=== PATIENT | male | born 1995 | race Caucasian/White ===

== ENCOUNTER 2017-04-14 07:05 | Emergency (ER) | payer MEDICAID ==
[2017-04-14 07:27] VITALS: BP 128/69
--- NOTE | 2017-04-14 07:42 | ED Physician Documentation ---
History of Present Illness - Stated complaint Stated Complaint: TOOTH PX - Chief complaint Chief Complaint: Heent - History obtained from History obtained from: Patient (Pt staes that he has been having off and on issues with his teeth and is here because his left upper teeth are hurting and the gum is swollen. He staes that this happened a couple days ago but resolved within 24 hours. it is now back.) - History of Present Illness Timing: Yesterday Review of Systems Constitutional: denies: Fever, Chills Ears: denies: Loss of hearing, Ear pain, Drainage/discharge, Foreign body Nose: denies: Rhinorrhea / runny nose, Congestion, Sinus pressure / pain Throat: reports: Dental pain / toothache, Oral lesions / sores. denies: Sore throat, Swollen tonsils, Swallowed foreign body Cardiac: denies: Chest pain / pressure Respiratory: denies: Dyspnea, Cough, Wheezing GI: denies: Abdominal Pain, Nausea, Vomiting, Constipation, Diarrhea Skin: denies: Rash, Laceration (s) Musculoskeletal: denies: Neck pain, Joint pain Neurologic: denies: Generalized weakness, Headache PD PAST MEDICAL HISTORY - Past Medical History Past Medical History: No - Past Surgical History Past Surgical History: No - Present Medications Home Medications: Ambulatory Orders Medication Instructions Recorded Confirmed Clindamycin HCl [Clindamycin 300MG 300 mg PO QID 7 Days #28 capsule 04/14/17 CAP] HYDROcod/ACETAM 5/325 [[place] 5/325] 1 tab PO Q6H PRN #6 tablet 04/14/17 - Allergies Allergies/Adverse Reactions: Allergies Allergy/AdvReac Type Severity Reaction Status Date / Time No Known Drug Allergies Allergy Verified 04/14/17 07:17 - Social History Does the pt smoke?: No Smoking Status: Never smoker Does the pt drink ETOH?: No Does the pt have substance abuse?: Yes - Immunizations Immunizations are current?: Yes Immunizations: TDAP current <10years - POLST Patient has POLST: No PD ED PE NORMAL - Vitals Vital signs reviewed: Yes - General General: Alert and oriented X 3, No acute distress, Well developed/nourished - HEENT HEENT: Atraumatic, Moist mucous membranes - Neck Neck: Supple, no meningeal sign, No adenopathy - Cardiac Cardiac: RRR - Respiratory Respiratory: No respiratory distress, Clear bilaterally - Derm Derm: Normal color, No rash - Neuro Neuro: Alert and oriented X 3 Eye Opening: Spontaneous Motor: Obeys Commands Verbal: Oriented GCS Score: 15 - Psych Psych: Normal mood, Normal affect PD ED PE EXPANDED - HEENT HEENT: Pharynx normal, Dental decay (Pt with diffuse poor dentition with missing and broken teeth and multiple caries. ), Dental TTP. No: Pharyngeal erythema, Swollen tonsils, Soft palate petecchiae, Dentition normal, Oral lesions / sores, Lip laceration, Tongue laceration, Buccal laceration Results - Vitals Vitals: Vital Signs - 24 hr 04/14/17 07:16 Temperature 35.8 C L Heart Rate 84 Respiratory 18 Rate Blood Pressure 128/69 O2 Saturation 100 Oxygen O2 Source Room air PD MEDICAL DECISION MAKING - ED course Complexity details: d/w patient ED course: Pt with diffuse poor dentition with multiple missing and broken teeth. He states that he has been to the dentist in the past for this and was told that he needed to take antibiotics before they could address any issues. He states that he took the ABX but before he could get back into see the dentist the symptoms returned. He has not identifiable abscess that can be drained in the ER. He was given contact numbers for a low cost dental clinic in the area. He stated that this was the clinic that he went to in the past. Informed him that the ABX today were just a temp measure and he needed to go see the dentist. He expressed understanding. Departure - Departure Disposition: 01 Home, Self Care Clinical Impression: Dental caries, Pain due to dental caries Condition: Good Instructions: ED Tooth Pain Follow-Up: dental,clinic [Other] Prescriptions: Clindamycin HCl [Clindamycin 300MG CAP] 300 mg PO QID 7 Days #28 capsule HYDROcod/ACETAM 5/325 [[place] 5/325] 1 tab PO Q6H PRN #6 tablet PRN Reason: Pain Comments: Follow up with the dental clinic at the number that you were provided.
== END 2017-04-14 07:52 | disposition home or self-care (01) ==
LOC: ED 07:05
DX: K02.9 Dental caries, unspecified (principal); K08.89 Other specified disorders of teeth and supporting structures
CPT/HCPCS: 99283

== ENCOUNTER 2017-07-07 05:39 | Emergency (ER) | payer MEDICAID ==
[2017-07-07 05:51] VITALS: BP 125/89
--- NOTE | 2017-07-07 05:58 | ED Physician Documentation ---
PD HPI HEENT - Stated complaint Stated Complaint: HEADACHE,VOMITING - Chief complaint Chief Complaint: Heent - History obtained from History obtained from: Patient - History of Present Illness Timing - onset: How many days ago (3) Timing - details: Gradual onset, Still present Location: Tooth, Mouth Associated symptoms: Facial swelling. 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 Patient has very poor dentition and has a follow up with a dentist in a couple of weeks but he needed to be on antibiotics before then. Patient came in today because he stated that his face was starting to swell. Review of Systems Constitutional: denies: Fever, Chills Eyes: denies: Loss of vision, Decreased vision, Photophobia, Irritation Ears: reports: Reviewed and negative Nose: denies: Congestion Throat: reports: Dental pain / toothache, Oral lesions / sores Cardiac: reports: Reviewed and negative Respiratory: reports: Reviewed and negative GI: reports: Nausea, Reviewed and negative : reports: Reviewed and negative Skin: reports: Reviewed and negative Musculoskeletal: reports: Reviewed and negative Neurologic: reports: Reviewed and negative Psychiatric: reports: Reviewed and negative Immunocompromised: denies: Immunocompromised PD PAST MEDICAL HISTORY - Past Medical History Past Medical History: No - Past Surgical History Past Surgical History: No - Present Medications Home Medications: Ambulatory Orders Medication Instructions Recorded Confirmed Clindamycin HCl [Clindamycin 300MG 300 mg PO QID 7 Days #28 capsule 04/14/17 CAP] HYDROcod/ACETAM 5/325 [[place] 5/325] 1 tab PO Q6H PRN #6 tablet 04/14/17 Amox/Clav 875/125 [Augmentin] 1 each PO Q12H #20 tablet 07/07/17 Chlorhexidine Gluconate 15 ml MM Q6HR #1 mouthwash 07/07/17 Ondansetron Odt [Zofran] 4 mg TL Q6H PRN #20 tablet 07/07/17 - Allergies Allergies/Adverse Reactions: Allergies Allergy/AdvReac Type Severity Reaction Status Date / Time No Known Drug Allergies Allergy Verified 04/14/17 07:17 - Social History Does the pt smoke?: No Smoking Status: Never smoker Does the pt drink ETOH?: No Does the pt have substance abuse?: Yes Substance Use and Type: Marijuana - Immunizations Immunizations are current?: Yes Immunizations: TDAP current <10years - POLST Patient has POLST: No PD ED PE NORMAL - Vitals Vital signs reviewed: Yes - General General: Alert and oriented X 3, No acute distress - HEENT HEENT: Atraumatic, Moist mucous membranes - Neck Neck: Supple, no meningeal sign - Cardiac Cardiac: RRR - Respiratory Respiratory: No respiratory distress - Abdomen Abdomen: Soft - Extremities Extremities: No deformity - Neuro Neuro: Alert and oriented X 3, No motor deficit, Normal speech PD ED PE EXPANDED - HEENT HEENT: Dental decay (severe dental decay encompassing most of the patient's mouth), Dental TTP, Other (erythema of patient's right maxillary region). No: Dental abscess Results - Vitals Vitals: Vital Signs - 24 hr 07/07/17 05:48 Temperature 36.2 C L Heart Rate 79 Respiratory 18 Rate Blood Pressure 125/89 H O2 Saturation 99 Oxygen O2 Source Room air PD MEDICAL DECISION MAKING - ED course Complexity details: reviewed old records, reviewed results, re-evaluated patient , considered differential, d/w patient ED course: patient was seen and examined at bedside. patient had no sign of ocular involvement. Patient was well appearing with normal vital signs. patient required no further work up and was stable for discharge with outpatient follow up. Departure - Departure Disposition: 01 Home, Self Care Clinical Impression: Dental caries, Cellulitis Condition: Good Instructions: ED Cellulitis Facial Follow-Up: primary,dentist [Other] - Within 1 week Prescriptions: Chlorhexidine Gluconate 15 ml MM Q6HR #1 mouthwash Amox/Clav 875/125 [Augmentin] 1 each PO Q12H #20 tablet Ondansetron Odt [Zofran] 4 mg TL Q6H PRN #20 tablet PRN Reason: Nausea / Vomiting Comments: Your are being started on two types of antibiotics today. One is an oral pill that you take the other is a rinse. The most important this is for you to finish the course of antibiotics before going to your dental appointment as you will likely need multiple teeth pulled.
== END 2017-07-07 06:06 | disposition home or self-care (01) ==
LOC: ED 05:39
DX: K02.9 Dental caries, unspecified (principal); L03.211 Cellulitis of face; R11.2 Nausea with vomiting, unspecified; Z72.4 Inappropriate diet and eating habits
CPT/HCPCS: 99283

== ENCOUNTER 2018-01-11 21:08 | Emergency (ER) | payer MEDICAID ==
[2018-01-11] MEDS ORDERED: CLINDAMYCIN 150 MG CAPSULE PO STA (21:37)
--- NOTE | 2018-01-11 21:41 | ED Physician Documentation ---
PD HPI HEENT - Stated complaint Stated Complaint: TOOTH PX - History obtained from History obtained from: Patient - History of Present Illness Timing - onset: Yesterday (He has had tooth pain for a while but his face started to swell yesterday and is worse today. No fevers.) Review of Systems Constitutional: denies: Fever, Chills Nose: denies: Rhinorrhea / runny nose Throat: reports: Dental pain / toothache. denies: Sore throat PD PAST MEDICAL HISTORY - Past Surgical History Past Surgical History: No - Present Medications Home Medications: Ambulatory Orders Medication Instructions Recorded Confirmed Clindamycin HCl [Clindamycin 300MG 300 mg PO QID 7 Days #28 capsule 04/14/17 CAP] HYDROcod/ACETAM 5/325 [[place] 5/325] 1 tab PO Q6H PRN #6 tablet 04/14/17 Amox/Clav 875/125 [Augmentin] 1 each PO Q12H #20 tablet 07/07/17 Chlorhexidine Gluconate 15 ml MM Q6HR #1 mouthwash 07/07/17 Ondansetron Odt [Zofran] 4 mg TL Q6H PRN #20 tablet 07/07/17 Clindamycin [Cleocin] 300 mg PO Q6H 10 Days capsule 01/11/18 HYDROcod/ACETAM 5/325 [[place] 5/325] 1 - 2 ea PO Q6H PRN #15 tablet 01/11/18 - Allergies Allergies/Adverse Reactions: Allergies Allergy/AdvReac Type Severity Reaction Status Date / Time No Known Drug Allergies Allergy Verified 01/11/18 21:42 - Social History Does the pt smoke?: No Smoking Status: Never smoker Does the pt drink ETOH?: No Does the pt have substance abuse?: Yes - Immunizations Immunizations are current?: Yes Immunizations: TDAP current <10years - POLST Patient has POLST: No PD ED PE NORMAL - Vitals Vital signs reviewed: Yes - General General: Alert and oriented X 3, No acute distress - HEENT HEENT: Other (He generally has terrible dentition, there is a large reactive gingival abscess on the lateral side of a left maxillary canine with reactive facial swelling. No trismus.) - Neck Neck: Supple, no meningeal sign, No bony TTP - Neuro Neuro: Alert and oriented X 3, Normal speech - Psych Psych: Normal mood, Normal affect Results - Vitals Vitals: Vital Signs - 24 hr 01/11/18 21:10 Temperature 36.4 C L Heart Rate 89 Respiratory 16 Rate Blood Pressure 150/98 H O2 Saturation 98 Oxygen O2 Source Room air Procedures - Abscess I&D (location) Dental Left maxilla Preparation: Lidocaine 2 % Incision: Incised with scalpel, Purulent drainage, Loculations broken Other: Pt tolerated well, Dressing applied, Antibiotic prescribed PD MEDICAL DECISION MAKING - Sepsis Event Vital Signs: Vital Signs - 24 hr 01/11/18 21:10 Temperature 36.4 C L Heart Rate 89 Respiratory 16 Rate Blood Pressure 150/98 H O2 Saturation 98 Oxygen O2 Source Room air Departure - Departure Disposition: 01 Home, Self Care Clinical Impression: Dental abscess Condition: Good Record reviewed to determine appropriate education?: Yes Instructions: ED Abscess Tooth Prescriptions: Clindamycin [Cleocin] 300 mg PO Q6H 10 Days capsule HYDROcod/ACETAM 5/325 [[place] 5/325] 1 - 2 ea PO Q6H PRN #15 tablet PRN Reason: Pain Comments: Do not drink or drive while taking narcotic pain medication. Note that many narcotic pain relievers also contain Tylenol/acetaminophen. Please ensure that your total dose of acetaminophen from all sources does not exceed 3 g (3000 mg) per day. You may get constipated while on this medication. Take a stool softener such as Colace twice a day while you are on it. Also add an [id number] laxative such as senna or MiraLAX on any day that you do not have a bowel movement. If you received a narcotic pain medication or sedative while in the emergency department, do not drive for the next 24 hours. It is very important that you follow-up with a dentist. When it comes to dental problems like yours, the emergency department can only offer a short- term solution to your long-term problem. A couple of low cost options for dental care include: [facility] in [place], calls [phone] for an appointment Or [facility] in [place], call [phone] for an appointment. Your blood pressure was elevated today on check into the emergency department. This does not mean that you have hypertension, it is a common phenomenon to come to the emergency department and have elevated blood pressure. I recommend that you see your primary care physician within the week to have it rechecked when you are feeling better.
[2018-01-11] MEDS ORDERED: HYDROcod/ACET 5/325 Prepack 4 PO STA (21:59)
[2018-01-11 22:17] VITALS: BP 143/85
== END 2018-01-11 22:16 | disposition home or self-care (01) ==
LOC: ED 21:08
DX: K04.7 Periapical abscess without sinus (principal); R03.0 Elevated blood-pressure reading, without diagnosis of hypertension
CPT/HCPCS: 41800; 99283; A9270